=== PATIENT | female | born 1970 | race Caucasian/White ===

== ENCOUNTER 2020-09-28 17:30 | Emergency (ER) | payer OTHER, SELFPAY ==
[2020-09-28 17:44] VITALS: BP 148/79; PULSE 80; RESP 18; TEMP 36.8; O2SAT 100
--- NOTE | 2020-09-28 18:06 | ED.GENADULT ---
HPI - General Adult General Chief complaint: Headache Stated complaint: headache Time Seen by Provider: 09/28/20 18:05 History of Present Illness HPI narrative: Patient is a 50-year-old female comes to the ED today complaining of a frontal and sinus headache for the last 3 days. Today she is starting to feel feverish. Admits to sinus congestion. Has been using her Flonase as well as Excedrin and Aleve and Tylenol with no relief. Admits to previous history of similar symptoms due to sinus issues but typically never this severe. Denies any other symptoms or concerns. Related Data Allergies Allergy/AdvReac Type Severity Reaction Status Date / Time naproxen Allergy Intermediate Dyspnea / Verified 09/28/20 18:45 SOB ibuprofen Allergy Unknown Unknown Verified 09/28/20 18:45 tramadol Allergy Unknown Unknown Verified 09/28/20 18:45 PROPOXYPHENE NAPSYLATE Allergy Unknown Unknown Uncoded 09/28/20 18:05 Review of Systems Constitutional: Constitutional: Reports as per HPI, Denies fever(s), Denies night sweats and Denies weakness ENT: Reports sinus pressure Comments: See HPI for sinus pain and sinus headache Cardiovascular: Cardiovascular: Denies chest pain, Denies edema, Denies leg edema, Denies dyspnea and Denies orthopnea Respiratory: Respiratory: Denies cough and Denies dyspnea Gastrointestinal: Gastrointestinal: Denies abdominal pain, Denies constipation, Denies diarrhea, Denies nausea and Denies vomiting Musculoskeletal: Musculoskeletal: Denies abnormal gait, Denies back pain, Denies numbness and Denies tingling Neurologic: Denies Abnormal speech present, Denies abnormal gait, Denies numbness, Denies tingling and Denies weakness Psychiatric: Psychiatric: Denies homicidal ideation and Denies suicidal ideation COUNT INCLUDES THE [facility] Social History Social History Gender identity (if verbalized by the patient): Female Exam Const: General: cooperative, healthy appearing, comfortable, no acute distress, well developed, alert, awake and Physically active Orientation/consciousness: patient oriented x3 HENMT: Head: normal to inspection, normocephalic and atraumatic Ears: external ears normal General nose exam: Nasal discharge present and Other nasal findings present (Significant nasal mucosal edema bilaterally) Face and sinus: sinuses tender (Tender to palpate over bilateral frontal and maxillary sinuses) Throat: posterior oropharynx normal Eyes: Pupils: Equal, round and reactive pupils present EOM: EOMs intact bilaterally Neck: Neck: normal visual inspection Chest: Chest palpation & inspection: normal inspection of the chest and no tenderness Resp: Effort & Inspection: normal respiratory effort and able to speak in complete sentences Auscultation: clear to auscultation bilaterally Cardio: Rate: regular rate Rhythm: regular rhythm GI: Inspection: normal to inspection GI Palp: No abdominal tenderness : General: Yes no CVA tenderness Back/Spine/Pelvis: Back: no CVA tenderness Skin: General skin exam: normal color and no rashes or lesions noted Lesions: no lesions Neuro: General: patient oriented x3, no focal motor deficits and CN's II-XI intact bilaterally Cranial nerves: Yes Equal, round and reactive pupils present Speech: No Abnormal speech present Gait exam (Neuro): Normal gait present Motor exam (neuro): 5/5 motor strength present throughout Sensory Exam: normal sensation Extrem: General: normal to inspection and full ROM Psych: Appearance: grossly normal and well kempt Mental Status: mental status grossly normal Speech and movement: Normal speech and movement present Affect: normal affect Thought process: Normal thought process present Course Course Emergency Course: 2030 Feeling better. Agreeable for discharge. Vital Signs Vital signs: Vital Signs Temperature 36.8 C 09/28/20 17:44 Pulse Rate 80 09/28/20 17:44 Respiratory Rate 18 09/28/20 17:44 Blood Pressure 148/79 H 09/28/20 17:44 Pulse
--- NOTE | 2020-09-28 18:30 | PC.NURSE ---
ERPA at bedside for pt assessment.
[2020-09-28] MEDS: LACTATED RINGERS 1,000 ML 999 ML IV CONT (19:00)
[2020-09-28] MEDS: METOCLOPRAMIDE HCL INJ 10 MG/2 ML VIAL IV PUSH (19:01)
[2020-09-28] MEDS: methylPREDNISolone SOD SUCC 125 MG VIAL IV PUSH (19:01)
[2020-09-28] MEDS: diphenhydrAMINE HCl INJ 50 MG/ML VIAL 25 MG IV PUSH (19:01)
--- NOTE | 2020-09-28 19:15 | PC.NURSE ---
Report received from Jazzy Padilla RN, to continue care.
--- NOTE | 2020-09-28 19:46 | PC.NURSE ---
Pt states headache is decreasing at present she thinks. Room darkened for patient comfort. Pt's IVF continue to infuse.
--- NOTE | 2020-09-28 20:07 | PC.NURSE ---
IVF completed, pt states headache has improved to approx 5/10 at present. Awaiting disposition.
[2020-09-30 02:12] LABS: SARS-CoV-2 RNA PCR Negative
== END 2020-09-28 20:32 | disposition home or self-care (01) ==
PROVIDERS: Physician Assistant Medical; Emergency Provider Emergency Medicine; PCP Nurse Practitioner Family
DX: J32.9 Chronic sinusitis, unspecified (principal); Z20.822 Contact with and (suspected) exposure to COVID-19
CPT/HCPCS: 96361; 96374; 96375; 99284; C9803; J1200; J1885; J2765; J2930; J7120; U0003; U0005

== ENCOUNTER 2023-01-02 23:26 | Emergency (ER) | payer OTHER, SELFPAY ==
[2023-01-02 23:29] VITALS: BP 147/90; PULSE 79; RESP 20; TEMP 36.2; O2SAT 99
--- NOTE | 2023-01-03 00:31 | ED.GENADULT ---
[facility] General Adult General Chief complaint: Extremity Problem,Nontraumatic Stated complaint: neck pain Time Seen by Provider: 01/03/23 00:08 Source: patient Mode of arrival: ambulatory Limitations: no limitations History of Present Illness HPI narrative: This is a 52-year-old female who presents to the ED with chief complaint of chronic right upper extremity and right lower extremity pain. Patient reports she has right-sided neck pain that radiates into the right shoulder. She reports this occasionally causes pain that radiates down into the right arm. 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 She has additional complaints of right lower back pain that radiates down the leg into the right foot. Also complains of paresthesias in the right foot. Describes a burning needlelike pain. Denies any recent injuries. Denies saddle anesthesia, problems with bowel or bladder dysfunction, fevers, chills, chest pain, shortness of breath, cough. Related Data Allergies Allergy/AdvReac Type Severity Reaction Status Date / Time naproxen Allergy Intermediate Dyspnea / Verified 01/03/23 00:11 SOB ibuprofen Allergy Unknown Unknown Verified 01/03/23 00:11 tramadol Allergy Unknown Unknown Verified 01/03/23 00:11 clonazepam [From Klonopin] AdvReac Unknown Verified 01/03/23 00:11 PROPOXYPHENE NAPSYLATE Allergy Unknown Unknown Uncoded 01/03/23 00:11 Review of Systems Review of Systems: All systems as dictated in [facility] Social History Social History Gender identity (if verbalized by the patient): Female Exam Narrative: GENERAL: Well-appearing, well-nourished, and in no acute distress. Ambulatory without difficulty HEAD: Normocephalic, atraumatic. EYES: PERRLA and EOMI. ENT: Nares clear, no rhinorrhea or epistaxis. Mucous membranes moist. Oropharynx without tonsillar hypertrophy exudate or other lesions. NECK: Supple. No adenopathy or masses. CHEST: No respiratory distress. Clear to auscultation. No wheezes rales or rhonchi HEART: Regular rate and rhythm. No murmur heard. Normal peripheral pulses. ABDOMEN: Soft, nontender, nondistended, normal active bowel sounds. MSK: No midline CT LS spine tenderness. Mild paraspinal cervical and paraspinal lumbar tenderness both on the right. Straight leg raise positive on the right. SKIN: Warm, dry, no rash. NEURO: Alert and oriented x3. No focal deficits. 5 out of 5 strength and sensation in the upper and lower extremities equally. No saddle anesthesia. PSYCH: Normal mood and affect. Course Vital Signs Vital signs: Vital Signs Temperature 97.2 F L 01/02/23 23:29 Pulse Rate 79 01/02/23 23:29 Respiratory Rate 20 01/02/23 23:29 Blood Pressure 147/90 H 01/02/23 23:29 Pulse Oximetry 99 01/02/23 23:29 Oxygen Delivery Room Air 01/02/23 23:29 Temperature 97.2 F L 01/02/23 23:29 Pulse Rate 79 01/02/23 23:29 Respiratory Rate 20 01/02/23 23:29 Blood Pressure 147/90 H 01/02/23 23:29 Pulse Oximetry 99 01/02/23 23:29 Oxygen Delivery Room Air 01/02/23 23:29 Medical Decision Making MDM Narrative Medical decision making narrative: This is a 52-year-old female who presents to the ED with chief complaint of chronic neck and chronic back pain. Vitals are normal. Exam shows positive straight leg raise on the right. No strength or sensation deficits, pain is described as a neuropathic pain. Suspect symptoms are likely due to nerve impingement in the back and the neck, especially given symptoms are unilateral. No gait disturbance. No red flag back signs or symptoms. We discussed the utility of CT at this point and she would like to proceed without CT imaging tonight. She was given Tylenol and muscle relaxer here. Prescriptions for muscle relaxers given. Encouraged follow-up with PCP and she is agreeable with this plan. Return precautions given and supportive measures discussed. Discharged in stab
[2023-01-03] MEDS: ORPHENADRINE CITRATE 100 MG TABLET.ER PO (00:47)
[2023-01-03] MEDS: ACETAMINOPHEN 500 MG TABLET 1000 MG PO (00:47)
== END 2023-01-03 00:57 | disposition home or self-care (01) ==
LOC: ANHED 01-03 01:04
PROVIDERS: Emergency Provider Physician Assistant; PCP Nurse Practitioner Family
DX: M54.2 Cervicalgia (principal); M54.41 Lumbago with sciatica, right side; G89.29 Other chronic pain
CPT/HCPCS: 99283; A9270

== ENCOUNTER 2023-10-13 16:57 | Outpatient (CLI) | payer OTHER, SELFPAY ==
[2023-10-13 17:40] LABS: Hematocrit 34.1 % (37.0-47.0); Mean Corpuscular HGB Conc 32.3 g/dl (32-36); Mean Corpuscular Hemoglobin 28.1 pg (26-34); Mean Platelet Volume 10.8 fl (7.4-10.4); Platelet Count Result 224 k/mm3 (150-375); Red Blood Count 3.92 M/mm3 (4.2-5.4); Red Cell Distribution Width 13.3 % (11.5-14.5); White Blood Count 7.3 K/mm3 (4.5-10.0)
[2023-10-13 17:43] LABS: Add Urine Microscopic? NO; Appearance Urine Clear (Clear); Bilirubin Urine Negative (Negative); Blood Urine Negative (Negative); Color Urine Yellow (Yellow); Glucose Urine UA Negative (Negative); Ketones Urine Negative (Negative); Leukocyte Esterase Ur Negative LEU/UL (Negative); Nitrate Urine Negative (Negative); Protein Urine Negative (Negative); Specific Grav Ur 1.007 (1.001-1.035); Urobilinogen Urine 0.2 mg/dL (<2.0)
[2023-10-13 17:49] LABS: Alanine Aminotransferase 13 U/L (6-35); Albumin Level 4.3 g/dL (3.5-5.1); Alkaline Phosphatase 89 U/L (38-126); Anion Gap 9 mmol/L (4-12); Aspartate Amino Transferase 19 U/L (14-36); Bilirubin,Total 0.1 mg/dL (0.2-1.3); Blood Urea Nitrogen 13 mg/dL (7-17); Calcium 8.6 mg/dL (8.4-10.2); Carbon Dioxide 26 mmol/L (22-30); Chloride 101 mmol/L (98-107); Cholesterol 203 mg/dL (0-200); Estimated Glomerular Filt Rate 28; Glucose 99 mg/dL (65-110); HDL Direct 48 mg/dL; Sodium 136 mmol/L (137-145); Triglycerides 299 mg/dL (<150); Uric Acid 6.6 mg/dL (2.5-7.5)
[2023-10-13 18:02] LABS: LDL Cholesterol Direct 115 mg/dL
[2023-10-13 18:14] LABS: Lymphocytes Absolute Manual 5.69 K/mm3 (1.1-4.5); Monocytes Absolute Manual 0.21 K/mm3 (0.1-0.90); Monocytes Percent Manual 3 % (3-9); Neutrophils Percent Manual 19 % (46-73); Total Cells Counted 100
[2023-10-13 18:15] LABS: Platelet Estimate Adequate (Adequate); Schistocytes None Seen
[2023-10-13 18:23] LABS: Vitamin D 25 Hydroxy 47.6 ng/mL
[2023-10-13 18:59] LABS: Folic Acid 13.7 ng/mL (2.76->20); Vitamin B12 > 1000.0 pg/mL (239-931)
== END 2023-10-13 16:58 | disposition home or self-care (01) ==
LOC: ANHLAB 17:02
PROVIDERS: PCP Nurse Practitioner Family; Visit Provider Nurse Practitioner Family
DX: R79.89 Other specified abnormal findings of blood chemistry (principal); F33.1 Major depressive disorder, recurrent, moderate; E66.3 Overweight; Z68.25 Body mass index [BMI] 25.0-25.9, adult
CPT/HCPCS: 36415; 80053; 80061; 81003; 82306; 82607; 82746; 83735; 84443; 84550; 85025

== ENCOUNTER 2024-03-16 19:27 | Emergency (ER) | payer OTHER, SELFPAY ==
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
[2024-03-16 19:39] VITALS: BP 141/90; PULSE 85; RESP 14; TEMP 36.3; O2SAT 100
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
[2024-03-16 23:00] VITALS: BP 150/92; PULSE 64; RESP 15; O2SAT 100
--- OUTSIDE RECORDS SUMMARY | 2024-03-18 20:35 | XMS_ITS | Patient Health Summary ---
Author Organization [facility] [employer] Address [address] [place] [address] Care Team Providers Care Sas Bi Developer Name Role Phone Unavailable Primary Care Provider Unavailabl e Note from [facility],non-owned Affiliates and Associated Physician Practices is amultiple site organization consisting of ambulatory clinics and hospital sitesin [place], [place], [place] and [place]. This disclosure is being madepursuant to the Care Everywhere program and may not contain all information available regarding this patient. Last updated 17.[facility] [employer] Social History Tobacco Use Types Packs/Day Years Used Date Smoking Tobacco: Never Assessed Sex and Gender Information Value Date Recorded Sex Assigned at Not on file Gender Identity Not on file Sexual Orientation Not on file Last Filed Vital Signs Vital Sign Reading Time Taken Comments Blood Pressure 135/80 09/19/2016 12:06 PM CDT Pulse 88 09/19/2016 11:33 AM CDT Temperature 36.2 ??C (97.1 ??F) 09/19/2016 11:33 AM C DT Respiratory Rate 18 07/19/2016 2:35 PM CDT Oxygen Saturation 99% 09/19/2016 11:33 AM CDT Inhaled Oxygen Concentration - - Weight 55.2 kg (121 lb 9.6 oz) 09/19/2016 11:33 AM CDT Height 157.5 cm (5' 2 ) 09/19/2016 11:33 AM CDT Body Mass Index 22.24 09/19/2016 11:33 AM CDT Procedures * DRUG SCREEN URINE PAIN MGMT PANEL A(Performed 09/25/2016) * LIPID PROFILE - POINT OF CARE (AMB) [facility](Performed 07/11/2016) * LIPID PROFILE - POINT OF CARE (AMB) [facility](Performed 07/11/2016) * OPIATES URINE CONFIRM RFLXED(Performed 07/11/2016) * LAB MISC TEST(Performed 07/11/2016) * DRUG ABUSE PANEL 10-20+ETHANOL URINE NO CONFIRM(Performed 07/11/2016) * LAB HISTORICAL RESULTS-ONBASE(Performed 07/05/2016) * LAB HISTORICAL RESULTS-ONBASE(Performed 06/13/2016) * INFLUENZA A+B - POINT OF CARE (AMB) [facility](Performed 05/07/2016) * PATHOLOGY TISSUE(Performed 03/18/2016) * HCG URINE QUALITATIVE - POCT () [facility](Performed 03/18/2016) * URINALYSIS AUTO - POINT OF CARE ([place] [place]) [facility](Performed 12/25/2015) * CULTURE RESPIRATORY LOWER(Performed 11/16/2015) * URINALYSIS AUTO - POINT OF CARE ([facility] [place]) [facility](Performed 11/13/2015) * CULTURE URINE(Performed 11/13/2015) * EKG 12-LEAD(Performed 11/04/2015) * COMPLETE PFT W/WO BRONCHODILATOR(Performed 05/31/2015) * ECHO COMPLETE(Performed 05/31/2015) * CULTURE RESPIRATORY LOWER(Performed 05/20/2014) * URINALYSIS W/MICROSCOPIC NO CULTURE(Performed 03/18/2014) * URINALYSIS - POINT OF CARE (AMB) [facility](Performed 03/09/2014) Results * (ABNORMAL) DRUG SCREEN URINE PAIN MGMT PANEL A (09/25/2016 2:00 PM CDT) Amphetamines negative [facility]) Barbiturates Screen Urine negative [facility] Benzodiazepine negative [facility] Cocaine Metabolite negative [facility]) Marijuana POSITIVE(A) [facility]) Marijuana Metabolites 120 ng/mL [facility] Methadone negative [facility]) Opiates POSITIVE(A) [facility]) Morphine 290 ng/mL [facility]) Codeine negative [facility]) Hydromorphone negative [facility]) Comment: ? This result was generated using LC-MS/MS; an equivalent method to GC/MS. Hydrocodone negative [facility]) Propoxyphene negative [facility]) Comment SEE NOTE [facility]) Comment: The submitted urine specimen was tested at the listed cutoffs and, if POSITIVE, confirmed by a second independent chemical method. Confirmations are not performed on negative screens. Units are ng/mL. ?Screen ?? Confirmation ?Cutoff ?Cutoff Amphetamines ? 1000 Amphetamine ? 300 Methampheatine ?300 Barbiturates ?300 Butalbital ?200 Butabarbital ?200 Amobarbital ? 200 Pentobarbital ? 200 Secobarbital ?200 Phenobarbital ? 200 Benzodiazepines ? 300 Nordiazepam ? 100 Oxazepam ?100 Temazepam ? 100 Lorazepam ? 100 Flurazepam metabolite ? 100 Alprazolam ?100 Cocaine metabolites ? 300 ?100 Marijuana metabolites ?20 ?5 Methadone ? 300 ?150 Opiates ? 300 Codeine ? 100 Morphine ?100 Hydrocodone ? 100 Hydromorphone ? 100 Propoxyphene ? 300 Propoxyphene mtb ?100 Oxycodone negative [facility]) Comment SEE NOTE [facility] Comment: The submitted urine specimen was screened at the initial test level listed below. If positive, confirmatory testing was performed with the confirmation test level listed below. Confirmatory testing not performed on negative screens. ?Initial ? Confirmation ?Analyte ?Test Level ?Test Level ?Oxycodone ?100 ng/mL ? 100 ng/mL NO COLLECTION DATE RECEIVED. WE HAVE USED THE DATE THE SPECIMEN WAS RECEIVED BY THIS LABORATORY THE COLLECTION DATE. IF THIS IS INCORRECT, PLEASE CONTACT CLIENT SERVICES. PHONE NUMBER: [phone] Test Performed at: [id number] [place], [place] ??[id number] VANESA IGLESIAS MD,PHD 09/25/2016 2:00 PM CDT 09/20/2016 7:20 AM CDT Tasha Rodriguez MD LAB - TOXICOLOGY ORD ERABLES Performing Organization Address City/[facility]/ZIP Co de Phone Number [facility]) * LIPID PROFILE - POINT OF CARE (AMB) [facility] (07/11/2016) Only the most recent of2 resultswithin the time period is included. Tasha Rodriguez MD LAB - POINT OF CARE ORDERABLES Performing Organization Address [facility] Co de Phone Number [facility] * (ABNORMAL) OPIATES URINE CONFIRM RFLXED (07/11/2016 12:00 AM CDT) Opiates Positive(A) Cutoff=30 0 ng/mL [facility] ([facility]) Comment: Opiate test includes Codeine, Morphine, Hydromorphone, Hydrocodone. Confirmation performed by Mass Spectrometry Codeine Positive(A) [facility] ([facility]) Codeine Confirm GC/MS [address] Cutoff=30 0 ng/mL [facility] ([facility]) Morphine Negative Cutoff=30 0 [facility] ([facility]) Hydromorphone Negative Cutoff=30 0 [facility] ([facility]) Hydrocodone Negative Cutoff=30 0 [facility] ([facility]) 07/11/2016 07/11/2016 Narrative [facility] ([facility]) - 07/23/2016 3:11 PM CDT Performed at: ??01 - [facility] [address] ??[id number] [place] Polisher: Claude Lucas MD, Phone: ??[phone] Tasha Rodriguez MD LAB - URINE CHEMISTR Y ORDERABLES Performing Organization Address [facility] Co de Phone Number [facility] ([facility]) * (ABNORMAL) LAB MISC TEST (07/11/2016 12:00 AM CDT) Cannabinoid GC/MS Urine Positive(A ) Cutoff=20 [facility] ([facility]) Carboxy THC GC/MS 69 Cutoff=10 ng/mL [facility] ([place]) 07/11/2016 07/11/2016 Narrative [facility] ([place]) - 07/23/2016 3:11 PM CDT Performed at: ??01 - [facility] [address] [place], [place] ??[id number] [place] Polisher: Claude Lucas MD, Phone: ??[phone] Tasha Rodriguez MD LAB SEND OUT Performing Organization Address [facility]/ZIP Co de Phone Number [facility] ([place]) * DRUG ABUSE PANEL 10-20+ETHANOL URINE NO CONFIRM (07/11/2016 12:00 AM CDT) Cannabinoids Screen Urine See Final Results Cutoff=20 ng/mL [facility] ([place]) Opiates See Final Results Cutoff=30 0 ng/mL [facility] ([place]) Comment:Opiate test includes Codeine, Morphine, Hydromorphone, Hydrocodone. Urine specimen (specimen) URINE / Unknown 07/11/2016 07/11/2016 Narrative [facility] ([place]) - 07/23/2016 3:11 PM CDT Performed at: ??01 - [facility] [address] [address] [place], [place] ??[id number] [place] Polisher: Claude Lucas MD, Phone: ??[phone] Tasha Rodriguez MD LAB - URINE CHEMISTR Y ORDERABLES Performing Organization Address City/[facility]/ZIP Co de Phone Number [facility] ([place]) * LAB HISTORICAL RESULTS-ONBASE (07/05/2016) Only the most recent of2 resultswithin the time period is included. 07/05/2016 Historical Provider LAB - CHEMISTRY O RDERABLES Performing Organization Address City/[facility]/ZIP Co de Phone Number [facility] [address] * INFLUENZA A+B - POINT OF CARE (AMB) [facility] (05/07/2016) Influenza A Antigen POCT Negative [facility] Influenza B Antigen POCT Negative [facility] 05/07/2016 Tasha Rodriguez MD LAB - POINT OF CARE ORDERABLES [facility] * PATHOLOGY TISSUE (03/18/2016 3:[address]ICER) Pathologist [facility] Surgical Pathology Tissue ACCESSION No: [id number] PRE-OP DIAGNOSIS: ??GERD and diffuse abdominal pain. OPERATIVE PROCEDURE/FINDINGS: ??EGD ? normal EGD; EGD with biopsy ? duodenal biopsy, gastric biopsy; flexible sigmoidoscopy ? solid stool. FINAL DIAGNOSIS: STOMACH, BIOPSY (A): - ??ANTRAL AND OXYNTIC MUCOSA, CONGESTION DUODENUM, BIOPSY (B): - ??NO PATHOLOGIC DIAGNOSIS GROSS DESCRIPTION: The specimen is received fixed in formalin in two containers for gross and microscopic examination. ??Each container is labeled with the patient's name, Henrry Cleary . Specimen A, stomach biopsy , consists of multiple soft, yellow-castano tissue fragments ranging in greatest dimension from 0.1 to 0.4 cm, with an aggregate measurement of 0.5 x 0.4 x 0.1 cm. ??The specimen is submitted in toto as cassette A1. Specimen B, duodenal biopsy , consists of multiple fragments of soft, yellow-castano tissue ranging in greatest dimension from 0.3 to 0.5 cm, with an aggregate measurement of 0.5 x 0.4 x 0.1 cm. ??The specimen is submitted in toto as cassette B1. for CZ/ls MICROSCOPIC DESCRIPTION: The stomach biopsy (A) does not have H. pylori or intestinal metaplasia on H and E stain. The duodenal biopsy has villi of appropriate proportions and is unremarkable. 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 Some of these tests were developed by our own laboratory and have not been cleared or approved by the US Food and Drug Administration.?The FDA does not require this test to go through premarket FDA review.?These tests are used for clinical purposes. They should not be regarded as investigational or for research.?? This laboratory is certified under the Clinical Laboratory Improvement Amendments (CLIA) as qualified to perform high complexity clinical laboratory testing. This case has been personally reviewed and interpreted by the attending (teaching) pathologist. Final Diagnosis performed by Valentina Palencia MD. Electronically signed 03/21/[address] [facility] ([facility]) Other (qualifier value) 03/18/2016 3:[address]ICER 03/19/2016 10:[address] Narrative [facility] ([facility]) - 03/21/2016 10:[address]ICER PRE-OP DIAGNOSIS: ??GERD and Diffuse Abdominal Pain OPERATIVE PROCEDURE / FINDINGS: ??Procedure(s) with comments: EGD - normal egd EGD W/BIOPSY - duodenal bx gastric bx FLEXIBLE SIGMOIDOSCOPY - solid stool POST-OP DIAGNOSIS: * No post-op diagnosis entered * Specimen A->Gastric Specimen B->Duodenum M Lorenza Mckeon MD LAB - PATHOLOGY/CYTO LOGY ORDERABLES Performing Organization Address [facility] Co de Phone Number [facility] ([facility]) * HCG URINE QUALITATIVE - POCT (IP) [facility] (03/18/2016 2:[address] PATR[address]ICER) NEGATIVE [facility]) Comment:Senior Analysis Specialist: PILO WOODS 03/18/2016 2:[address]ICER M Lorenza Mckeon MD LAB - POINT OF CARE ORDERABLES Performing Organization Address [facility] Co de Phone Number [facility]) * URINALYSIS AUTO - POINT OF CARE (AMB) [facility] (12/25/2015) Only the most recent of2 resultswithin the time period is included. Glucose UA neg [facility] Bilirubin UA POCT neg [facility] Ketones UA POCT neg [facility] Specific [place] UA 1.015 [facility] Blood Urine POCT neg [facility] pH UA 6.0 [facility] Protein UA neg [facility] Urobilinogen UA 0.2 [facility] Nitrite UA neg [facility] WBC UA neg [facility] Urine specimen (specimen) 12/25/2015 Tasha Rodriguez MD LAB - POINT OF CARE ORDERABLES Performing Organization Address [facility] de Phone Number [facility] * (ABNORMAL) CULTURE RESPIRATORY LOWER (11/16/2015 11:00 AM CDT) Only the most recent of2 resultswithin the time period is included. Culture SEE NOTE(A) [facility]) Comment: ??CULTURE, SPUTUM/LOWER RESPIRATORY ?MICRO NUMBER: ?[id number] ??TEST STATUS: ? FINAL ??SPECIMEN SOURCE: ?? NOT GIVEN ??SPECIMEN QUALITY: ??ADEQUATE ??GRAM STAIN: ?Rare White blood cells seen ? Few Gram positive cocci ? Gram stain indicates that specimen is ? 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 NO COLLECTION DATE RECEIVED. WE HAVE USED THE DATE THE SPECIMEN WAS RECEIVED BY THIS LABORATORY THE COLLECTION DATE. IF THIS IS INCORRECT, PLEASE CONTACT CLIENT SERVICES. PHONE NUMBER: [phone] Test Performed at: [facility] ??[id number] VIVI TORRES MD Sputum specimen (specimen) 11/16/2015 11:00 AM CDT 11/14/2015 4:24 AM CDT Narrative [facility]) - 11/16/2015 11:00 AM CDT Specimen Type->Sputum Tasha Rodriguez MD LAB - MICROBIOLOGY O RDERABLES Performing Organization Address City/[facility]/ZIP Co de Phone Number [facility]) * CULTURE URINE (11/13/2015) Urine Culture Routine SEE NOTE [facility]) Comment: ??CULTURE, URINE, ROUTINE ?MICRO NUMBER: ?[id number] ??TEST STATUS: ? FINAL ??SPECIMEN SOURCE: ?? URINE ??SPECIMEN QUALITY: ??ADEQUATE ??RESULT: ?No Growth Test Performed at: [facility] ??[id number] VIVI TORRES MD Urine specimen (specimen) URINE / Unknown 11/13/2015 11/14/2015 3:23 AM CDT Narrative [facility]) - 11/15/2015 12:00 AM CDT Specimen Type->Urine Tasha Rodriguez MD LAB - MICROBIOLOGY O RDERABLES Performing Organization Address City/[facility]/ZIP Co de Phone Number [facility]) * EKG 12-LEAD (11/04/2015 8:20 AM CDT) Derek Balderrama MD ECG ORDERABLES Performing Organization Address [facility] Co de Phone Number [facility] * (ABNORMAL) COMPLETE PFT W/WO BRONCHODILATOR (05/31/2015 3:02 PM CDT) Impressions [facility] - 05/31/2015 3:02 PM CDT [facility] DEPARTMENT OF PULMONARY, CRITICAL CARE, AND SLEEP MEDICINE PULMONARY FUNCTION TESTS Henrry Cleary 06/01/2015 INTERPRETATION Please see technologist's comments mentioned above. SPIROMETRY: Forced vital capacity is normal. ??FEV1 is reduced. FEV1/FVC ratio is reduced. There is no significant response to bronchodilator therapy. This does not preclude the use of bronchodilator response if clinically indicated. The inspection of the patient's flow-volume loops shows scooping of the expiratory limbs. LUNG VOLUMES: Lung volumes by body plethysmography show increased TLC and RV. DLCO: Diffusing capacity unadjusted for Hb or COHb is reduced. AIRWAY RESISTANCE: The prebronchodialtor airway resistance is increased and normalized post bronchodilator. The specific conductance is reduced. ARTERIAL BLOOD GAS ANALYSIS: Not performed. IMPRESSION: 1. Moderately severe obstructive ventilatory limitation. 2. Mild hyperinflation and severe air trapping. 3. Moderate reduction in the unadjusted diffusion capacity. Recommend adjusting for Hgb and COHgb if clinically indicated. 4. No comparison study is available. Stefano Mosher MD ( Fellow) Division of Pulmonary, Critical Care, & Sleep Medicine [facility] P: [phone] 06/01/2015 , 8:57 AM I have personally reviewed pulmonary function test data and finding. I concur with fellow's note. Gricel Tello MD Narrative Procedure Note Provider, MD Robe - 08/01/2017 IMPRESSION [facility] DEPARTMENT OF PULMONARY, CRITICAL CARE, AND SLEEP MEDICINE PULMONARY FUNCTION TESTS Henrry Cherry Cleary 06/01/2015 INTERPRETATION Please see technologist's comments mentioned above. SPIROMETRY: Forced vital capacity is normal. FEV1 is reduced. FEV1/FVC ratio is reduced. There is no significant response to bronchodilator therapy. This does not preclude the use of bronchodilator response if clinically indicated. The inspection of the patient's flow-volume loops shows scooping of the expiratory limbs. LUNG VOLUMES: Lung volumes by body plethysmography show increased TLC and RV. DLCO: Diffusing capacity unadjusted for Hb or COHb is reduced. AIRWAY RESISTANCE: The prebronchodialtor airway resistance is increased and normalized post bronchodilator. The specific conductance is reduced. ARTERIAL BLOOD GAS ANALYSIS: Not performed. IMPRESSION: 1. Moderately severe obstructive ventilatory limitation. 2. Mild hyperinflation and severe air trapping. 3. Moderate reduction in the unadjusted diffusion capacity. Recommend adjusting for Hgb and COHgb if clinically indicated. 4. No comparison study is available. Stefano Mosher MD ( Fellow) Division of Pulmonary, Critical Care, & Sleep Medicine [facility] P: [phone] 06/01/2015 , 8:57 AM I have personally reviewed pulmonary function test data and finding. I concur with fellow's note. Gricel Tello MD Hernando Phillip MD RESPIRATORY THERAPY ORDERABLES [facility] * ECHO W DOPPLER AND COLOR FLOW (05/31/2015 12:00 AM CDT) Anatomical Region Laterality Modality Other 05/31/2015 Hernando Phillip MD ECHOCARDIOGRAPHY RA DIANT * (ABNORMAL) URINALYSIS W/MICROSCOPIC NO CULTURE (03/18/2014 6:[address]ICER) Color UA Straw Straw, Yellow, Colorless, Light Yellow [facility] Clarity UA Clear Clear [facility] Specific [place] UA 1.003 1.001 - 1.030 [facility] pH UA 5.5 5.0 - 8.0 [facility] Protein UA Negative <=20 mg/dL [facility] Glucose UA Negative Negative mg/dL [facility] Ketone UA Negative Negative mg/dL [facility] Bilirubin UA Negative Negative mg/dL [facility] Blood UA Negative Negative [facility] Nitrite UA Negative Negative [facility] Leukocyte Esterase Negative Negative [facility] Urobilinogen UA <2.0 <2.0 mg/dL [facility] RBC UA 2 0 - 8 /HPF [facility] WBC UA <1 0 - 2 /HPF [facility] Bacteria UA Rare Rare, Occasional, None /HPF [facility] Squamous Epithelial Cells UA 3(H) 0 - 1 /HPF [facility] Mucus UA Rare(A) None /LPF [facility] Urine specimen (specimen) 03/18/2014 6:[address]ICER 03/18/2014 6:[address]ICER Tika Argueta MD LAB - URINALYSIS ORD ERABLES Performing Organization Address City/State/[facility] Co de Phone Number [address] [phone] * URINALYSIS - POINT OF CARE (AMB) [facility] (03/09/2014) Glucose UA neg [facility] Bilirubin UA POCT neg [facility] Ketones UA POCT neg [facility] Specific [place] UA 1.030 [facility] Blood Urine POCT neg [facility] pH UA 6.0 [facility] Protein UA neg [facility] Urobilinogen UA 0.2 mg/dL [facility] Nitrite UA neg [facility] WBC [facility] Urine specimen (specimen) 03/09/2014 Tasha Rodriguez MD LAB - POINT OF CARE ORDERABLES [facility]
--- OUTSIDE RECORDS SUMMARY | 2024-03-18 20:35 | XMS_ITS | Clinical Summary ---
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 1.001 - 1.035 [facility] BLOOD (U) NEGATIVE NEGATIVE [facility] U PH 6.5 5.0 - 9.0 [facility] PROTEIN (U) NEGATIVE NEGATIVE mg/dL [facility] UROBILINOGEN 0.2 0.2 - 1.0 EU/dL = mg/dL [facility] NITRITES NEGATIVE NEGATIVE MG/DL [facility] LEUKOCYTES (U) NEGATIVE NEGATIVE [facility] URINE SPECIMEN OBTAINED BY CLEAN CATCH PROCEDURE / Unknown 01/07/2024 us Raciel Jain [facility] URINE ORDERABLES Final Result Performing Organization Address City/State/[facility] Co de Phone Number [facility] [address] [place] [address], * CT LUNG SCREENING (11/06/2023 4:44 PM CDT) Anatomical Region Laterality Modality Chest Computed Tomogra phy 11/10/2023 9:14 PM CDT Impressions 11/10/2023 9:17 PM CDT IMPRESSION: 1. Lung RADS category 3 - probably benign findings - short-term follow-up suggested; includes nodules with a low likelihood of becoming a clinically active cancer. 2. LUNG-RADS category S: Negative, no new/unknown potentially significant incidental findings requiring urgent additional evaluation. 3. Other incidental findings as above. RECOMMENDATIONS: Follow-up LDCT Chest in 6 months (on or around 2024). Referred By: RACIEL JAIN Interpreted By: Bam Wan MD, 11/10/2023 9:14 PM Narrative 11/10/2023 9:[address] PM [address]T [address] [address] EXAM: LUNG SCREENING LOW-DOSE CT THORAX WITHOUT CONTRAST DATE: 11/06/2023 HISTORY: Asymptomatic patient meeting NCCN high-risk criteria for lung screening. COMPARISON: None TECHNIQUE: Noncontrast, helical, low-dose CT (LDCT) chest per standard departmental protocol. Automated exposure control was utilized for dose reduction. FINDINGS: Lung Screening Specific (LUNG-RADS): 6.2 mm right upper lobe nodule axial image 34. ??Baseline. ??Lung RADS 3. 6.4 mm left upper lobe nodule axial image 27. ??Baseline. ??Lung RADS 3. 4.4 mm groundglass nodule right lower lobe axial image 104. ??Baseline. ??Lung RADS 2. Potentially Significant Incidentals (LUNG-RADS category S): None. Pulmonary Incidentals: Severe upper lobe predominant centrilobular emphysema. Other Incidentals: None. Procedure Note Bam Wan MD - 11/10/2023 [facility] [address] [place], [place] [address] EXAM: LUNG SCREENING LOW-DOSE CT THORAX WITHOUT CONTRAST DATE: 11/06/2023 HISTORY: Asymptomatic patient meeting NCCN high-risk criteria for lungscreening. COMPARISON: None TECHNIQUE: Noncontrast, helical, low-dose CT (LDCT) chest per standarddepartmental protocol. Automated exposure control was utilized for dosereduction. FINDINGS: Lung Screening Specific (LUNG-RADS): 6.2 mm right upper lobe nodule axial image 34. Baseline. Lung RADS 3. 6.4 mm left upper lobe nodule axial image 27. Baseline. Lung RADS 3. 4.4 mm groundglass nodule right lower lobe axial image 104. Baseline.Lung RADS 2. Potentially Significant Incidentals (LUNG-RADS category S): None. Pulmonary Incidentals: Severe upper lobe predominant centrilobularemphysema. Other Incidentals: None. IMPRESSION: 1. Lung RADS category 3 - probably benign findings - short-term follow- upsuggested; includes nodules with a low likelihood of becoming a clinicallyactive cancer. 2. LUNG-RADS category S: Negative, no new/unknown potentially significantincidental findings requiring urgent additional evaluation. 3. Other incidental findings as above. RECOMMENDATIONS: Follow-up LDCT Chest in 6 months (on or around2024). Referred By: RACIEL JAIN Interpreted By: Bam Wan MD, 11/10/2023 9:14 PM Raciel Jain CAR STORER CT Final Result * HUMAN PAPILLOMAVIRUS, HIGH-RISK TYPES (08/13/2022 12:00 PM CDT) SPEC DESCRIPTION CERVICAL/END OCERVICAL 08/15/2022 8:47 AM CDT [facility] HPV DNA HIGH RISK NEGATIVE NEGATIVE 08/16/2022 12:18 PM CDT [facility] Comment:SEE CYTOLOGY REPORT 08/13/2022 12:0 0 PM CDT Racielmaximus Weirlonny CAR STORER PATHOLOGY/CYTOLOGY ORDERABLES Final Result [facility] [address] [place] [address], * Cytopath Cerv/Vag Thin Layer (08/13/2022 8:00 AM CDT) THIN PREP PAP ? [facility] ?[address] ?[place] [address] ? Department of Pathology ? Pathology Report ? CERVICAL/VAGINAL PAP SMEAR REPORT Name: HENRRY MINAYA Cherry ? Age: 3 1970 (Age: 52) ?Location: [facility] Sex: F ?Collected Date: 08/13/2022 Hospital #: [id number] ?Date Received: 08/15/2022 Date Reported: 08/19/2022 Provider: RACIEL JAIN CAR STORER-C INTERPRETATION CERVICAL/ENDOCERVI ESVIN: ? SATISFACTORY FOR EVALUATION. ENDOCERVICAL/TRANS FORMATION ZONE COMPONENT PRESENT. ? NEGATIVE FOR INTRAEPITHELIAL LESION OR MALIGNANCY. NEGATIVE FOR HIGH RISK HPV. The FDA approved Aptima HPV assay is an in vitro nucleic acid amplification test for the qualitative detection of E6/E7 viral messenger RNA (mRNA) from 14 high-risk types of human papillomavirus (HPV) in cervical specimens. ??The high-risk HPV types detected by the assay include: 16,18,31,33,35,39, 45,51,52,56,58,59, 66, and 68. Electronically Signed Out By YOLIE Taylor (ASCP) CLINICAL HISTORY Z12.4 ?? Z11.51 SCREENING PAP AND HPV ThinPrep Pap Test with HR HPV testing requested. Date of Last Menstrual Period: ? 11/03/18 Menstrual Status: Post-Menopausal SPECIMEN SUBMITTED CERVICAL/ENDOCERVI ESVIN ?Specimen Received:1 Thin Prep Vial, Image Assisted Pap (SMD) ? Please note: The Pap smear is not a diagnostic test. ??It is a screening test. ??Negative results on combined screening (Pap test and HPV-DNA) have a high negative predictive value (99.1-100 percent) for cervical cancer. ??The pap test is not effective in detecting cervical adenocarcinoma. [facility] 08/13/2022 8:00 AM CDT 08/15/2022 8:00 AM CDT Comment:CERVICAL/ENDOCERVICA L us Raciel DURÁNP PATHOLOGY/CYTOLOGY ORDERABLES Final Result Performing Organization Address City/[facility]/ZIP Co de Phone Number [facility] [address] [place] [address], [place] [phone] * (ABNORMAL) HEPATITIS C ANTIBODY (11/03/2020 2:27 PM CDT) HEPATITIS C AB REACTIVE( A) NON-REACT DOREEN 11/03/2020 9:41 PM CDT [facility] Comment: PRESUMPTIVE EVIDENCE OF ANTIBODIES TO HCV. CONSIDER ORDERING HCV RNA DETECTION AND QUANTIFICATION BY RT-PCR ANALYSIS ON A NEW SPECIMEN. 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
--- OUTSIDE RECORDS SUMMARY | 2024-03-18 20:35 | XMS_ITS | Referral Summary ---
Author Organization [facility] Address [address] [place] [address] Care Team Providers Care Housekeeping And Laundry Team Leader Name Role Phone Unavailable Primary Care Provider Unavailabl e Source Comments [facility],non-[facility] Affiliates and Associated Physician Practices is amultiple site organization consisting of ambulatory clinics and hospital sitesin [place], [place], [place] and [place]. This disclosure is being madepursuant to the Care Everywhere program and may not contain all information available regarding this patient. Last updated 17.[facility] [employer] Social History Tobacco Use Types Packs/Day Years [...] Mass Index 22.24 09/19/2016 11:33 AM CDT Plan of Treatment Not on file Procedures Procedure Name Priority Date/Time Associated Diagnosis Comments LIPID PROFILE - POINT OF CARE (AMB) [facility] Routine 07/11/2016 from Last 3 Months or Most Recently Relevant to Health Maintenance Results * LIPID PROFILE - POINT OF CARE (AMB) [facility] (07/11/2016) Cholesterol Total 169 [facility] HDL 57 mg/dL [facility] Triglycerides 202 mg/dL [facility] LDL Calculated 71 [facility] Non HDL Cholesterol 112 [facility] 07/11/2016 Tasha Rodriguez MD LAB - POINT OF CARE ORDERABLES [facility] from Last 3 Months or Most Recently Relevant to Health Maintenance
--- OUTSIDE RECORDS SUMMARY | 2024-03-18 20:35 | XMS_ITS | CONTINUITY OF CARE DOCUMENT ---
Author Name merrillmakedabenita Address Unknown Organization [facility] Address [address] [place] [address] Phone [phone] Care Team Providers Care Wagon Driver Name Role Phone Dheeraj Snyder MD Unavailable [phone] BHAVESH FONTANA MD Unavailable Unavailable GUI MACIAS, ASHLEY Vann Unavailable INSURANCE PROVIDERS Payer name Policy type / Coverage type [place] MEDICA[place] (2) Medicaid [id number]
--- OUTSIDE RECORDS SUMMARY | 2024-03-18 20:35 | XMS_ITS | Clinical Summary ---
Author Organization [address] Address [address] [place] [phone] Care Team Providers Care Business Solutions Architect Name Role Phone Vero Cristina NP Primary Care Provider [phone] Allergies Active Allergy Reactions Criticality Noted Date Comments Acetaminophen Itching Low 11/01/2013 Itching Propoxyphene N-Acetaminophen Rash Medium 04/19/2022 Ibuprofen Rash,Unknown Medium 03/18/2016 Nsaids (Non-Steroidal Anti-Inflammatory Drug) Anaphylaxis High 11/01/2013 Anaphylaxis Propoxyphene Itching,Unknown Low 11/01/2013 Itching Tramadol Other (See comments),Unknown Low 01/14/2014 blackouts Medications No known medications Active Problems No known active problems Social History Tobacco Use Types Packs/Day Years Used Date Smoking Tobacco: Every Day Cigarettes Smokeless Tobacco: Current Tobacco Cessation:Ready to Q uit: Not Asked; Counseling Given: Not Answered Personal Safety Answer Date Recorded Getting School Help Needed Not on file 02/23 Comments Unknown Sex and Gender Information Value Date Recorded Sex Assigned at Not on file 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 Gender Identity Not on file Sexual Orientation Not on file Obstetrics History Last Filed Vital Signs Vital Sign Reading Time Taken Comments Blood Pressure 100/75 11/01/2013 2:45 PM CDT Pulse 92 11/01/2013 2:45 PM CDT Temperature 37.2 ??C (98.9 ??F) 11/01/2013 2:45 PM CD T Respiratory Rate - - Oxygen Saturation 98% 11/01/2013 2:45 PM CDT Inhaled Oxygen Concentration - - Weight 49 kg (108 lb) 11/01/2013 2:45 PM CDT Height 157.5 cm (5' 2 ) 11/01/2013 2:45 PM CDT Body Mass Index 19.75 11/01/2013 2:45 PM CDT Plan of Treatment Health Maintenance Due Date Last Done Comments Breast Cancer Screening-Mammogram 1970 Cervical Cancer Screening 1970 Colon Cancer Screening-Colonoscopy 1970 Depression Screening 1970 Hepatitis C Screening 1970 Hepatitis B Screening 1988 Regular Well Visit/Exam 18-64 1988 Zoster Vaccine (2 of 2) 07/11/2021 05/16/2021 Covid-19 Vaccine (5 - 2023-2 5 season) 2023 09/30/2021, 05/04/2021, 09/29/2020, Additional history exists Influenza Vaccine (#1) 2023 , 11/26/2021, 10/31/2020, Additional history exists DTaP/Tdap/Td Vaccine (3 - Td or Tdap) 10/19/2025 10/20/2015, 01/18/2014 Pneumococcal vaccine <65 (3 of 3 - PPSV23 or PCV20) 05/06/2035 10/09/2018, 03/13/2018, 12/09/2013, Additional history exists Insurance Care Teams Business Solutions Architect Relationship Specialty Start Date End Date Vero Cristina NP [address] [place] [id number] PCP - General Nurse Practitioner 09/25/21
--- OUTSIDE RECORDS SUMMARY | 2024-03-18 20:35 | XMS_ITS | Clinical Summary ---
Author Organization [facility] Address [address] [place] [address] Care Team Providers Care Manager Social Services Name Role Phone Unavailable Primary Care Provider Unavailabl e Source Comments [facility],non-owned Affiliates and Associated Physician Practices is amultiple site organization consisting of ambulatory clinics and hospital sitesin [place], [place], [place] and [place]. This disclosure is being madepursuant to the Care Everywhere program and may not contain all information available regarding this patient. Last updated 17.[facility] Scour Prevention Social History Tobacco Use Types Packs/Day Years [...] 09/19/2016 11:33 AM CDT Plan of Treatment Health Maintenance Due Date Last Done Comments COLOGUARD (AGES 45-75) - COLON CA SCREENING 1970 COLON MONITORING 1970 COLONOSCOPY - COLON CA SCREENING 1970 CT COLONOGRAPHY - COLON CA SCREENING 1970 Colorectal Cancer Screening 1970 FIT - COLON CA SCREENING 1970 FLEX SIG - COLON CA SCREENING 1970 MAMMOGRAM 1970 HIV SCREENING 1985 HEPATITIS C SCREENING 04/30/1988 DTAP/TDAP/TD VACCINES (1 - Tdap) 1989 HEPATITIS B VACCINE (1 of 3 - 19+ 3-dose series) 1989 PNEUMOCOCCAL VACCINE 50+ (1 of 1 - PCV) 2020 ZOSTER VACCINE (1 of 2) 2020 LIPID TESTING 07/11/2021 07/11/2016, 07/11/2016 COVID-19 VACCINE (3 - season) 2023 09/29/2020, 08/06/2020 INFLUENZA VACCINE (#1) 2023 3, 11/27/2021, 11/26/2021, Additional history exists DEPRESSION SCREENING 02/25/2024 PAP SMEAR 08/13/2025 08/13/2022, 08/13/2022 HIB VACCINE Aged Out No longer eligi ble based on patient's age to complete this topic HPV VACCINE Aged Out No longer eligi ble based on patient's age to complete this topic MENINGOCOCCAL (Group B) VACCINE Aged Out No longer eligible based on patient's age to complete this topic MENINGOCOCCAL VACCINE Aged Out No sol alfredo eligible based on patient's age to complete this topic PNEUMOCOCCAL VACCINE Aged Out No long er eligible based on patient's age to complete this topic Procedures Procedure Name Priority Date/Time Associated Diagnosis Comments LIPID PROFILE - POINT OF CARE (AMB) [facility] Routine 07/11/2016 from Last 3 Months or Most Recently Relevant to Health Maintenance Results * LIPID PROFILE - POINT OF CARE (AMB) [facility] (07/11/2016) Cholesterol Total 169 [facility] HDL 57 mg/dL [facility] Triglycerides 202 mg/dL [facility] LDL Calculated [facility] Non HDL Cholesterol 112 [facility] 07/11/2016 Tasha Rodriguez MD LAB - POINT OF CARE ORDERABLES [facility] from Last 3 Months or Most Recently Relevant to Health Maintenance
--- OUTSIDE RECORDS SUMMARY | 2024-03-18 20:35 | XMS_ITS | Referral Summary ---
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 Care Teams Tea Leaf Reader Relationship Specialty Start Date End Date Vero Cristina NP [address] [place] [id number] PCP - General Nurse Practitioner 09/25/21
== END 2024-03-16 23:01 | disposition home or self-care (01) ==
PROVIDERS: Emergency Provider Physician Assistant; PCP Nurse Practitioner Family
DX: S43.401A Unspecified sprain of right shoulder joint, initial encounter (principal); V89.2XXA Person injured in unspecified motor-vehicle accident, traffic, initial encounter; J44.9 Chronic obstructive pulmonary disease, unspecified; F17.200 Nicotine dependence, unspecified, uncomplicated
CPT/HCPCS: 73030; 99283

== ENCOUNTER 2024-10-27 21:03 | Emergency (ER) | payer OTHER, SELFPAY ==
--- NOTE | ~2024-10-27 | CT_ITS ---
EXAMINATION: CT abdomen pelvis w con DATE: 10/27/2024 23:34 INDICATION: Lower abdominal pain. Possible passed vaginal foreign body. TECHNIQUE: Computed tomography (CT) of the abdomen and pelvis was performed with 100 mL Omnipaque-350 intravenous contrast. Automated exposure control and iterative reconstruction technique were employed. The dose-length product was 357.55 mGy-cm. COMPARISON: 10/31/2013 FINDINGS: Mild emphysema. Heart size is normal. No pericardial or pleural effusion. Liver, gallbladder, spleen, pancreas and bilateral adrenal glands are normal. Mild bilateral renal atrophy with more focal cortical scarring at the lower poles of both kidneys. 8 mm right renal cyst. Bowels including the appendix are normal. Bladder, anteverted uterus and bilateral adnexa are unremarkable. No free intraperitoneal gas or fluid. No pathologically enlarged abdominal or pelvic lymphadenopathy. Old healed pelvic fractures including at the right iliac wing in the bilateral superior and inferior pubic rami. Severe right-sided predominant disc height loss with degenerative endplate changes at L1-L2. Otherwise mild lumbar and lower thoracic spondylosis. IMPRESSION: 1. No acute intra-abdominal/pelvic process. Reviewed, dictated and finalized at location A.
--- OUTSIDE RECORDS SUMMARY | 2024-10-27 21:06 | XMS_ITS | Clinical Summary ---
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 Gender Identity Not on file Sexual Orientation Not on file Obstetrics History Last Filed Vital Signs Vital Sign Reading Time Taken Comments Blood Pressure 100/75 11/01/2013 2:45 PM CDT Pulse 92 11/01/2013 2:45 PM CDT Temperature 37.2 C (98.9 F) 11/01/2013 2:45 PM CDT Respiratory Rate - - Oxygen Saturation 98% 11/01/2013 2:45 PM CDT Inhaled Oxygen Concentration - - Weight 49 kg (108 lb) 11/01/2013 2:45 PM CDT Height 157.5 cm (5' 2) 11/01/2013 2:45 PM CDT Body Mass Index 19.75 11/01/2013 2:45 PM CDT Plan of Treatment Health Maintenance Due Date Last Done Comments Breast Cancer Screening-Mammogram 1970 Cervical Cancer Screening 1970 Colon Cancer Screening-Colonoscopy 1970 Depression Screening 1970 Hepatitis C Screening 1970 Hepatitis B Screening 1988 Regular Well Visit/Exam 18-64 1988 Zoster Vaccine (2 of 2) 07/11/2021 05/16/2021 Pneumococcal vaccine <65 (3 of 3 - PCV20 or PCV21) 10/10/2023 10/09/2018, 03/13/2018, 12/09/2013, Additional history exists Covid-19 Vaccine (5 - 2023-2 5 season) 2023 09/30/2021, 05/04/2021, 09/29/2020, Additional history exists Influenza Vaccine (#1) 2024 , 11/26/2021, 10/31/2020, Additional history exists DTaP/Tdap/Td Vaccine (3 - Td or Tdap) 10/19/2025 10/20/2015, 01/18/2014 Insurance Care Teams Color Buffer Relationship Specialty Start Date End Date Vero Cristina NP [address] [place] [phone] PCP - General Nurse Practitioner 09/25/21
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
[2024-10-27 21:07] VITALS: BP 154/77; PULSE 80; RESP 85; TEMP 36.7; O2SAT 100
[2024-10-27 22:34] VITALS: BP 149/79; PULSE 73; RESP 20; O2SAT 96
[2024-10-27 22:56] LABS: Hematocrit 31.0 % (37.0-47.0); Hemoglobin 10.2 g/dL (12.0-15.0); Immature Granulocyte Percent A 0.1 % (0-0.5); Lymphocytes Absolute Auto 4.23 K/mm3 (0.9-3.2); Mean Corpuscular HGB Conc 32.9 g/dl (32-36); Mean Corpuscular Hemoglobin 26.4 pg (26-34); Mean Corpuscular Volume 80.3 fl (80-100); Nucleated Red Blood Cells Absolute Auto 0.000 K/mm3 (0.0-0.012); Nucleated Red Blood Cells Perc 0.0 % (0.0-0.2); Platelet Count Result 286 k/mm3 (150-375); Red Blood Count 3.86 M/mm3 (4.2-5.4); White Blood Count 7.1 K/mm3 (4.5-10.0)
[2024-10-27 23:03] LABS: BEDSIDEPREGUCG Negative (Negative)
--- OUTSIDE RECORDS SUMMARY | 2024-10-27 23:05 | XMS_ITS | Clinical Summary ---
Author Organization [facility] Address [address] [place] [address] Care Team Providers Care New Car Salesperson Name Role Phone Unavailable Primary Care Provider Unavailabl e Source Comments [facility] Affiliates and Associated Physician Practices is amultiple site organization consisting of ambulatory clinics and hospital sitesin [place], [place], [place] and [place]. This disclosure is being madepursuant to the Care Everywhere program and may not contain all information available regarding this patient. Last updated 17.[facility] [employer] Social History Tobacco Use Types Packs/Day Years Used Date Smoking Tobacco: Never Assessed Comments Unknown Sex and Gender Information Value Date Recorded Sex Assigned at Not on file Legal Sex Female 4:38 PM CDT Gender Identity Not on file Sexual Orientation Not on file Last Filed Vital Signs Vital Sign Reading Time Taken Comments Blood Pressure 135/80 09/19/2016 12:06 PM CDT Pulse 88 09/19/2016 11:33 AM CDT Temperature 36.2 C (97.1 F) 09/19/2016 11:33 AM CDT Respiratory Rate 18 07/19/2016 2:35 PM CDT Oxygen Saturation 99% 09/19/2016 11:33 AM CDT Inhaled Oxygen Concentration - - Weight 55.2 kg (121 lb 9.6 oz) 09/19/2016 11:33 AM CDT Height 157.5 cm (5' 2) 09/19/2016 11:33 AM CDT Body Mass Index 22.24 09/19/2016 11:33 AM CDT Plan of Treatment Health Maintenance Due Date Last Done Comments [facility] (AGES 45-75) - COLON CA SCREENING 1970 COLON MONITORING 1970 COLONOSCOPY - COLON CA SCREENING 1970 CT COLONOGRAPHY - COLON CA SCREENING 1970 Colorectal Cancer Screening 1970 FIT - COLON CA SCREENING 1970 FLEX SIG - COLON CA SCREENING 1970 MAMMOGRAM 1970 HIV SCREENING 1985 DTAP/TDAP/TD VACCINES (1 - Tdap) 1989 HEPATITIS B VACCINE (1 of 3 - 19+ 3-dose series) 1989 PNEUMOCOCCAL VACCINE 50+ (1 of 1 - PCV) 2020 ZOSTER VACCINE (1 of 2) 2020 LIPID TESTING 07/11/2021 07/11/2016, 07/11/2016 COVID-19 VACCINE (3 - 2023- season) 2023 09/29/2020, 08/06/2020 DEPRESSION SCREENING 02/25/2024 INFLUENZA VACCINE (#1) 2024 , 11/27/2021, 11/26/2021, Additional history exists PAP SMEAR 08/13/2025 08/13/2022, 08/13/2022 HEPATITIS C SCREENING Completed 11/03/2020 HIB VACCINE Aged Out No longer eligi ble based on patient's age to complete this topic HPV VACCINE Aged Out No longer eligi ble based on patient's age to complete this topic MENINGOCOCCAL (Group B) VACCINE SHARED DECISION-MAKING Aged Out No longer eligible based on patient's age to complete this topic MENINGOCOCCAL GROUPS A/C/Y/W VACCINE Aged Out No longer eligible based on patient's age to complete this topic Procedures Procedure Name Priority Date/Time Associated Diagnosis Comments LIPID PROFILE - POINT OF CARE (AMB) [facility] Routine 07/11/2016 from Last 3 Months or Most Recently Relevant to Health Maintenance Results * LIPID PROFILE - POINT OF CARE (AMB) [facility] (07/11/2016) Cholesterol Total 169 [facility] HDL 57 mg/dL [facility] Triglycerides 202 mg/dL [facility] LDL Calculated [facility] Non HDL Cholesterol 112 [facility] 07/11/2016 us Tasha Rodriguez MD LAB - POINT OF CARE ORDERABLES Final Result [address] from Last 3 Months or Most Recently Relevant to Health Maintenance [place] [address] [place] [address]
--- OUTSIDE RECORDS SUMMARY | 2024-10-27 23:05 | XMS_ITS | Clinical Summary ---
Author Organization [facility] Address [facility] [place] [address] Care Team Providers Care Ballistics Tester Name Role Phone Raciel Cristina Primary Care Provider [phone] Allergies Active Allergy Reactions Criticality Noted Date Comments Ibuprofen Rash,Unknown Medium 03/18/2016 Clonazepam Rash Low 04/01/2024 Naproxen Rash,Shortness of Breath High 09/28/2020 Propoxyphene Unknown 12/20/2016 Tramadol Other (see comment),Unknown Low 01/15/20 14 blackouts Medications [facility] [place] (PULSE OXIMETER FOR FINGER) [facility] [place]18 Active Blood Pressure Monitoring (BLOOD PRESSURE MON/AUTO/WRIST) DeviceIndications :Fluctuating blood pressure 1 each by Does not apply route daily. 1 each 021 Active Nebulizers (AIRIAL COMPACT COMPRESSOR NEB) [facility] [place] Active NEBULIZER DEVICE, DME,Indications:U nilateral emphysema [...] Active Spacer/Aero-Holdi ng Chambers DeviceIndications :Centrilobular emphysema ([facility]),Severe persistent asthma without complication ([facility]) 1 each by Does not apply route daily. 1 each 1 025 Active cyclobenzaprine (FLEXERIL) 10 MG tablet Active montelukast (SINGULAIR) 10 MG tablet Take 1 tablet (10 mg total) by mouth daily. Active albuterol sulfate HFA 108 (90 Base) MCG/ACT inhalerIndication s:Moderate persistent asthma without complication ([facility]) TAKE 2 PUFFS BY MOUTH EVERY 6 [...] 30 tablet 11 025 Active nystatin (MYCOSTATIN) 181732 UNIT/ML suspensionIndicat ions:Oral thrush Take 5 mLs (500,000 Units total) by mouth 4 (four) times daily. 240 mL 025 Active carisoprodol (SOMA) 350 MG tabletIndications :Chronic pain syndrome TAKE 1 TABLET BY MOUTH THREE TIMES A DAY NEEDED 90 tablet 2 025 Active nystatin (MYCOSTATIN) 638101 UNIT/ML suspensionIndicat ions:Oral thrush Take 5 mLs [...] muscle spasm 11/06/2021 LOC (loss of consciousness) ([facility]) Family history of diabetes mellitus 08/19/2021 Mood disorder 03/28/2021 Positive hepatitis C antibody test 03/28/2021 Anxiety 07/25/2020 B12 deficiency 07/25/2020 Bilateral carpal tunnel syndrome 01/29/2019 Chronic cough 01/19/2018 History of esophageal cancer 01/19/2018 Moderate episode of recurrent major depressive d isorder 01/19/2018 Other chronic pain 01/19/2018 Chronic nausea 10/20/2017 Low vitamin D level 07/17/2017 Asthma ([facility]) 02/10/2017 Allergic rhinitis 12/25/2016 Chronic constipation 12/20/2016 Tobacco abuse 02/14/2015 Ovarian mass 03/25/2014 Hx of fracture of pelvis 03/18/2014 Chronic pain syndrome 01/30/2014 Overview (01/19/2018): Overview: Has chronic pain in pelvis and rt hip Takes soma prn for this COPD (chronic obstructive pu lmonary disease) ([facility]) 01/25/2014 Resolved Problems Problem Noted Date Diagnosed [...] pressure 11/06/2020 0 03/28/2021 Positive urine test ([facility]) 11/06/2020 03/28/2021 Personal history of [...] Description 10/18/2024 3:00 PM CDT Office Visit [facility] Medicine [address] [phone] Raciel Cristina FNP Follow Up (Patient presenting [...] - ) 10/18/2024 Travel 08/13/2024 Therapy Plan [facility] [address] [place] [address] Ninoska Sykes, PT from Last 3 Months [...] Sex Assigned at Female 04/01/2024 12:02 PM FRONT TENDER Legal Sex Female 7:54 PM CDT Gender Identity Female 04/15/2024 3:52 PM FRONT TENDER Sexual Orientation Straight 07/16/2021 10 :15 AM [...] Description 10/29/2024 10:00 AM CDT [facility] [address] [place] [address] Justin Quintero PA-C [address] [place] [address] 01/14/2025 11:00 AM FRONT TENDER [facility] [facility] [address] [place] [id number] Damon Lowry DO [address] [place] [address] 04/26/2025 2:40 PM FRONT TENDER Office Visit [facility] Family [facility] Internal Medicine - [address] [phone] Raciel Cristina FNP [address] [place] [phone] Health Maintenance Due Date Last Done Comments [...] 01/18/2014 Hepatitis C Completed 11/03/2020 PHQ-2 (Physician [place]) Completed 04/15/2024 Pneumococcal Vaccine: 50+ Years Completed 07/13/2024, 10/09/2018, 03/13/2018 COVID-19 Vaccine Completed 09/07/2024, , 01/06/2023, Additional history exists Zoster Vaccines Completed 09/07/2024, 05/16/2021 Meningococcal B Vaccine Aged Out No l onger eligible based on patient's age to complete this topic Meningococcal Vaccine Aged Out No osl alfredo eligible based on patient's age to [...] 9:14 PM Narrative 11/10/2023 9:17 PM CDT [place] [id number] EXAM: LUNG SCREENING LOW-DOSE CT THORAX WITHOUT [...] Procedure Note Bam Wan MD - 11/10/2023 [address] [place], [place] [address] EXAM: LUNG SCREENING LOW-DOSE CT THORAX WITHOUT [...] Wan MD, 11/10/2023 9:14 PM Raciel Cristina [facility] CT Final Result * HUMAN PAPILLOMAVIRUS, HIGH-RISK TYPES (08/13/2022 12:00 PM CDT) SPEC DESCRIPTION CERVICAL/END OCERVICAL 08/15/2022 8:47 AM CDT [facility] HPV DNA HIGH RISK NEGATIVE NEGATIVE 08/16/2022 12:18 PM CDT [facility] Comment:SEE CYTOLOGY REPORT 08/13/2022 12:0 0 PM CDT Raciel MILLS PATHOLOGY/CYTOLOGY ORDERABLES Final Result [facility] [address] [place] [address], * Cytopath Cerv/Vag Thin Layer (08/13/2022 8:00 AM CDT) THIN PREP PAP [facility] [address] [place] [address] Department of Pathology Pathology Report CERVICAL/VAGINAL PAP SMEAR REPORT Name: HENRRY CLEARY Age: 3 1970 (Age: 52) Location: [facility] Sex: F Collected Date: 08/13/2022 [facility] #: [id number] Date Received: 08/15/2022 Date Reported: 08/19/2022 Provider: [...] is not effective in detecting cervical adenocarcinoma. [facility] 08/13/2022 8:00 AM CDT 08/15/2022 8:00 AM CDT Comment:CERVICAL/ENDOCERVICA L Raciel Weirlonny DURÁNP PATHOLOGY/CYTOLOGY ORDERABLES Final Result [facility] [address] [place] [address], * (ABNORMAL) HEPATITIS C ANTIBODY (11/03/2020 2:27 PM CDT) HEPATITIS C AB REACTIVE( A) NON-REACT DOREEN 11/03/2020 9:41 PM CDT [facility] Comment: PRESUMPTIVE EVIDENCE OF ANTIBODIES TO HCV. CONSIDER ORDERING HCV RNA DETECTION AND QUANTIFICATION BY RT-PCR ANALYSIS ON A NEW SPECIMEN. 11/03/2020 2:27 PM CDT Raciel Ibeth [facility] Final Result Performing Organization Address City/[facility] Co de Phone Number [facility] [address] [place] [address], [place] [phone] [id number] from Last 3 Months or Most Recently Relevant to Health Maintenance [place] [address] [place] [address] Advance Directives Documents on File Type Date Recorded Patient Business Process Architect Expl anation Legal Documents 01/04/2022 12:43 PM COMPL ETED ATT REQUEST FOR (STEPH) BILLING Care Teams Ballistics Tester Relationship Specialty Start Date End Date Raciel Cristina FNP [address] [place] [address] PCP - General NURSE PRACTITIONER 03/13/17
--- OUTSIDE RECORDS SUMMARY | 2024-10-27 23:05 | XMS_ITS | Clinical Summary ---
Author Organization [address] Address [address] [place] [phone] Care Team Providers Care Mill Operator Name Role Phone Vero Cristina NP Primary [...] on file Legal Sex Female 8:33 PM REGISTERED MEDICAL TRANSCRIPTIONIST Gender Identity Not on file Sexual Orientation [...] Tdap) 10/19/2025 10/20/2015, 01/18/2014 Insurance Care Teams Mill Operator Relationship Specialty Start Date End Date Vero Cristina NP [address] [place] [id number] PCP - General Nurse Practitioner 09/25/21
[2024-10-27 23:07] LABS: Alanine Aminotransferase 11 U/L (6-35); Albumin Level 4.0 g/dL (3.5-5.1); Alkaline Phosphatase 88 U/L (38-126); Anion Gap 4 mmol/L (4-12); Aspartate Amino Transferase 20 U/L (14-36); Bilirubin,Total 0.1 mg/dL (0.2-1.3); Blood Urea Nitrogen 8 mg/dL (7-17); Calcium 9.4 mg/dL (8.4-10.2); Carbon Dioxide 25 mmol/L (22-30); Chloride 108 mmol/L (98-107); Estimated CRCL calculation 32 ml/min; Estimated Glomerular Filt Rate 43; Glucose 98 mg/dL (65-110); Lipase 84 U/L (23-300); Potassium 4.0 mmol/L (3.4-5.0); Sodium 137 mmol/L (137-145); Total Protein 7.1 g/dL (6.3-8.2)
--- NOTE | 2024-10-27 23:08 | ED_ITS ---
HPI - Abdominal Pain General Chief Complaint: Abdominal Pain Stated Complaint: lower abdominal pain Time Seen by Provider: 10/27/24 22:59 History of Present Illness HPI narrative: This is a 54-year-old female history of COPD who presents to ED for something fell out of my vagina. Patient states about a week and half ago, she passed what was described as a robertson a ball with what looked like suction cups. Since then, she has been having lower abdominal pain that has been worsening. She did have a couple episodes of vaginal bleeding shortly after but that has resolved. She has had no discharge since then. Denies fevers, chills, chest pain, shortness of breath, nausea, vomiting. Related Data Allergies Allergy/AdvReac Type Severity Reaction Status Date / Time naproxen Allergy Intermediate Dyspnea / Verified 10/27/24 21:10 SOB ibuprofen Allergy Unknown Unknown Verified 10/27/24 21:10 tramadol Allergy Unknown Unknown Verified 10/27/24 21:10 clonazepam (From Klonopin) AdvReac Unknown Verified 10/27/24 21:10 PROPOXYPHENE NAPSYLATE Allergy Unknown Unknown Uncoded 10/27/24 21:10 Review of Systems 2 Review of Systems: Gen.: Denies fevers or chills Eyes: Denies eye pain or visual change ENT: Denies congestion Respiratory: Denies shortness of breath or cough CV: Denies chest pain or palpitations GI: As per HPI denies burning, urgency, frequency or hematuria Musculoskeletal: Denies back pain or muscle pain Neuro: Denies numbness, tingling, weakness or focal weakness Skin: Denies rash Except as documented, all other systems reviewed and negative [facility] Past Medical History Medical History History of COPD Social History Social History Smoking status: Current every day smoker Gender identity (if verbalized by the patient): Female Exam 2 Narrative: APPEARANCE: No acute distress, nontoxic, resting in bed EYES: EOMI HEENT: Normocephalic, atraumatic, OMM RESPIRATORY: No respiratory distress faint wheezes throughout CARDIOVASCULAR: Regular rate and rhythm without murmurs rubs or gallops. ABDOMINAL: Soft, mild lower abdominal tenderness to palpation MUSCULOSKELETAl: Moves all extremities. No clubbing, cyanosis or edema. NEURO: Awake and alert. Following commands, speech normal, no focal deficits SKIN:: Warm, dry. No rashes lesions or abrasions PSYCHIATRIC: Normal affect/mood, Course Vital Signs Vital signs: Vital Signs Temperature 98.1 F 10/27/24 21:07 Pulse Rate 80 10/27/24 21:07 Respiratory Rate 85 H 10/27/24 21:07 Blood Pressure 154/77 H 10/27/24 21:07 Pulse Oximetry 100 10/27/24 21:07 Oxygen Delivery Room Air 10/27/24 21:07 Temperature 98.1 F 10/27/24 21:07 Pulse Rate 70 10/28/24 00:16 Respiratory Rate 16 10/28/24 00:16 Blood Pressure 157/82 H 10/28/24 00:16 Pulse Oximetry 100 10/28/24 00:16 Oxygen Delivery Room Air 10/27/24 22:34 MDM - Abdominal Pain MDM Narrative Medical decision making narrative: 54-year-old female who presented to the ED for possible foreign body from vagina. On initial evaluation, patient was in no acute distress, afebrile, hemodynamically stable. She had minimal tenderness palpation to the abdomen. UA was consistent with UTI. CT abdomen/ pelvis was obtained which showed no acute process. Pelvic exam was with foundry tender in room, there is no evidence of a retained foreign body. Unclear what patient witnessed, it is possible that she passed a uterine fibroid. She was given a referral to gynecology for further evaluation this. She was given Rocephin for her UTI she was given a prescription for Keflex. Patient was agreeable to this plan. Given strict return precautions. Differential Diagnosis Differential diagnosis: Likely other ( Retained foreign body, UTI) Medical Records Attestation: I reviewed the patient's medical records. Lab Data Attestation: I reviewed the patient's lab results. 10/27/24 22:39 10/27/24 22:39 Labs: Lab Results 10/27/24 10/27/24 10/27/24 Range/Units 22:39 23:00 23:01 WBC 7.1 (4.5-10.0) K/mm3 RBC 3.86 L (4.2-5.4) M/mm3 Hgb 10.2 L (12.0-15.0) g/dL Hct 31.0 L (37.0-47.0) % MCV 80.3 (80-100) fl MCH 26.4 (26-34) pg MCHC 32.9 (32-36) g/dl RDW 14.2 (11.5-14.5) % Plt Count 286 (150-375) k/mm3 MPV 10.4 (7.4-10.4) fl Immature Gran % (Auto) 0.1 (0-0.5) % Neut % (Auto) 32.0 L (45.5-73.1) % Lymph % (Auto) 59.4 H (18.3-44.2) % [place] % (Auto) 6.6 (2.6-8.5) % Eos % (Auto) 1.3 (0-4.4) % Baso % (Auto) 0.6 (0.2-1.2) % Lymph # (Auto) 4.23 H (0.9-3.2) K/mm3 [place] # (Auto) 0.5 (0.1-0.6) K/mm3 Eos # (Auto) 0.1 (0-0.3) K/mm3 Baso # (Auto) 0.0 (0.0-0.1) K/mm3 Abs Immat Gran (auto) 0.01 (0.00-0.031) K/mm3 Absolute Neuts (auto) 2.3 (1.3-6.7) K/mm3 Absolute Nucleated RBC 0.000 (0.0-0.012) K/mm3 Nucleated RBC % 0.0 (0.0-0.2) % Sodium 137 (137-145) mmol/L Potassium 4.0 (3.4-5.0) mmol/L Chloride 108 H (98-107) mmol/L Carbon Dioxide 25 (22-30) mmol/L Anion Gap 4 (4-12) mmol/L BUN 8 D (7-17) mg/dL Creatinine 1.28 H (0.7-1.0) mg/dL Estim Creat Clear Calc 32 ml/min Estimated GFR 43 L (59 - ) Glucose 98 (65-110) mg/dL Calcium 9.4 (8.4-10.2) mg/dL Total Bilirubin 0.1 L (0.2-1.3) mg/dL AST 20 (14-36) U/L ALT 11 (6-35) U/L Alkaline Phosphatase 88 (38-126) U/L Total Protein 7.1 (6.3-8.2) g/dL Albumin 4.0 (3.5-5.1) g/dL Lipase 84 (23-300) U/L Urine Color Yellow (Yellow) Urine Appearance Cloudy H (Clear) Urine pH 6.5 (5.0-9.0) Ur Specific [place] 1.009 (1.001-1.035) Urine Protein Negative (Negative) mg/dL Urine Glucose (UA) Negative (Negative) mg/dL Urine Ketones Negative (Negative) mg/dL Ur Blood (Man) Negative (Negative) Urine Nitrate Positive H (Negative) Urine Bilirubin Negative (Negative) Urine Urobilinogen 0.2 (<2.0) mg/dL Leukocyte Esterase Rfl 3+ H (Negative) ABIGAIL/UL Urine RBC 0-2 (0-2) /hpf Urine WBC 51-100 H (0-3) /hpf Ur Squamous Epith Cells Few (Few) /hpf Urine Bacteria 4+ H /hpf Urine Casts 0-2 POC Urine HCG, Qual Negative (Negative) Discharge Plan Discharge Clinical Impression: UTI (urinary tract infection) Qualifiers: Urinary tract infection type: acute cystitis Hematuria presence: without hematuria Qualified Code(s): N30.00 - Acute cystitis without hematuria Patient Disposition: Home Condition: Stable Instructions: Antibiotic Form Additional Instructions: Follow-up with Gynecology in the next week for re-evaluation. Take Keflex as prescribed. Return to the ED for any new or worsening symptoms. Patient Language: Romanian Prescriptions: New cephalexin 500 mg capsule 500 mg PO Q12H 7 Days Qty: 14 0RF No Action methylprednisolone 4 mg tablets,dose pack 4 mg PO PER PKG DIR Qty: 1 0RF Rx Instructions: 4 mg PO; amoxicillin-pot clavulanate [Augmentin] 875-125 mg tablet 1 tablet PO Q12H Qty: 10 0RF [id number] [Fioricet] 50-300-40 mg capsule 1 cap PO Q8H PRN (Reason: headache) Qty: 10 0RF cetirizine [Zyrtec] 10 mg tablet 10 mg PO DAILY PRN (Reason: sinus symptoms) Qty: 30 0RF cyclobenzaprine 7.5 mg tablet 7.5 mg PO HS PRN (Reason: muscle spasm) Qty: 10 0RF cyclobenzaprine 10 mg tablet 10 mg PO TID PRN (Reason: muscle spasm) Qty: 14 0RF Follow-up/Referrals: Jourdan Souht MD [Physician, EXPLORATION ENGINEER] CRISTOBAL,VIVIANE SCHRADER [Primary Care Provider]
[2024-10-27 23:24] LABS: Add Urine Microscopic? YES; Appearance Urine Cloudy (Clear); Glucose Urine UA Negative (Negative); Leukocyte Esterase Ur 3+ LEU/UL (Negative); Nitrate Urine Positive (Negative); Non Pathogenic Casts 0-2; Specific Grav Ur 1.009 (1.001-1.035)
[2024-10-28] MEDS: cefTRIAXone 2 GM in SODIUM CHLORIDE 0.9% IV 100 ML 200 ML IVPB (00:14)
[2024-10-28 00:16] VITALS: BP 157/82; PULSE 70; RESP 16; O2SAT 100
[2024-10-28] MEDS: KETOROLAC 30 MG/ML VIAL (*BKC) IV PUSH (00:22)
== END 2024-10-28 01:41 | disposition home or self-care (01) ==
PROVIDERS: Emergency Provider Student in an Organized Health Care Education/Training Program; PCP Nurse Practitioner Family
DX: N30.00 Acute cystitis without hematuria (principal); J44.9 Chronic obstructive pulmonary disease, unspecified; F17.200 Nicotine dependence, unspecified, uncomplicated
CPT/HCPCS: 36415; 74177; 80053; 81001; 81025; 83690; 85025; 87086; 87186; 96365; 96375; 99284; J0696; J1885; Q9967